=== PATIENT | female | born 1950 | race Caucasian/White ===

== ENCOUNTER → 2025-10-06 12:01 | Outpatient (CLI) | payer MEDICARE, OTHER, SELFPAY ==
--- NOTE | 2025-10-06 12:05 | DI.US.S_ITS ---
PROCEDURE: US FINE NEEDLE ASPIRATION
== END ==
LOC: US 12:03
PROVIDERS: PCP Physician Assistant; Referring Provider Physician Assistant; Visit Provider Physician Assistant
DX: E04.1 Nontoxic single thyroid nodule (principal)
CPT/HCPCS: 10005